=== PATIENT | male | born 1990 | race Two or more races ===

== ENCOUNTER 2018-11-08 23:32 | Emergency (ER) | payer SELFPAY ==
[2018-11-09] MEDS ORDERED: ACETAMINOPHEN 325 MG TABLET PO ONE (00:37)
[2018-11-09] MEDS ORDERED: ONDANSETRON HCL INJ/PF 4 MG/2 ML SDV IV ONE (00:53)
[2018-11-09] MEDS ORDERED: HYDROMORPHONE HCL INJ/PF 2 MG/ML AMPULE IV ONE (00:54)
[2018-11-09 01:04] LABS: VENOUS BLOOD BASE EXCESS 1.8 mmol/L; VENOUS BLOOD HCO3 26.1 mmol/L (20-32); VENOUS BLOOD PCO2 40.1 mmHg (35-63); VENOUS BLOOD PH 7.43 (7.30-7.42)
[2018-11-09 01:06] LABS: HEMATOCRIT 43.8 % (37.9-51.0); HEMOGLOBIN 14.9 g/dL (13.5-17.0); MEAN CORPUSCULAR HEMOGLOBIN 28.5 pg (27.0-33.4); MEAN CORPUSCULAR VOLUME 84 fl (80-97); PLATELET COUNT 327 10^3/uL (150-450); RED BLOOD COUNT 5.21 10^6/uL (4.35-5.55); RED CELL DISTRIBUTION WIDTH 13.6 % (11.5-14.0); WHITE BLOOD COUNT 12.2 10^3/uL (4.0-10.5)
[2018-11-09 01:13] LABS: INTERNATIONAL RATION (INR) 0.92; PROTHROMBIN TIME 12.8 SEC (11.4-15.4)
[2018-11-09 01:20] LABS: ALANINE AMINOTRANSFERASE 42 U/L (21-72); ALBUMIN 5.1 g/dL (3.5-5.0); ALKALINE PHOSPHATASE 118 U/L (38-126); ANION GAP 15 (5-19); ASPARTATE AMINO TRANSFERASE 25 U/L (17-59); BILIRUBIN,DIRECT 0.2 mg/dL (0.0-0.4); BILIRUBIN,TOTAL 0.9 mg/dL (0.2-1.3); BLOOD UREA NITROGEN 19 mg/dL (7-20); CALCIUM 9.7 mg/dL (8.4-10.2); CARBON DIOXIDE 26 mmol/L (22-30); CHLORIDE 101 mmol/L (98-107); GLUCOSE 126 mg/dL (75-110); LIPASE 34.3 U/L (23-300); POTASSIUM 4.1 mmol/L (3.6-5.0); SODIUM 142.1 mmol/L (137-145); TOTAL PROTEIN 8.6 g/dL (6.3-8.2)
[2018-11-09 01:30] LABS: ABSOLUTE LYMPHOCYTES# (MANUAL) 0.5 10^3/uL (0.5-4.7); ABSOLUTE MONOCYTES # (MANUAL) 0.9 10^3/uL (0.1-1.4); ABSOLUTE NEUTROPHILS# (MANUAL) 10.9 10^3/uL (1.7-8.2); BAND NEUTROPHILS % (MANUAL) 2 % (3-5); BASOPHILS % (MANUAL) 0 % (0-2); EOSINOPHILS % (MANUAL) 0 % (0-6); LYMPHOCYTES % (MANUAL) 4 % (13-45); MONOCYTES % (MANUAL) 7 % (3-13); SEGMENTED NEUTROPHILS % (MAN) 87 % (42-78); TOTAL CELLS COUNTED 100; TOXIC GRANULATION SLIGHT
[2018-11-09 01:31] LABS: PLATELET COMMENT ADEQUATE; PLATELET LARGE PRESENT; POLYCHROMASIA SLIGHT
--- NOTE | 2018-11-09 01:59 | RADIOLOGY REPORT (SQ) ---
EXAM DESCRIPTION: US ABDOMEN LIMITED COMPLETED DATE/TME: 11/09/2018 00:54 CLINICAL HISTORY: 27 years, Male, RUQ and epigastric pain and vomiting COMPARISON: None. TECHNIQUE: Grayscale and Doppler images of the abdomen LIMITATIONS: None. FINDINGS: The visualized portions of the pancreas, aorta, and IVC appear unremarkable. The liver has homogeneous echotexture and measures 17.7 cm in size. The main portal vein demonstrates normal hepatopedal flow. A small amount of sludge is noted within the gallbladder. No shadowing stone, wall thickening, or pericholecystic fluid is identified. No sonographic Deras sign was elicited. The common bile duct measures up to 0.2 cm in size. Right kidney measures 11.7 x 5.4 x 6.0 cm. There is no hydronephrosis. IMPRESSION: Small amount of sludge within the gallbladder. No evidence of cholelithiasis or acute cholecystitis. copyright 2010 [employer]- All Rights Reserved
[2018-11-09 04:22] VITALS: BP 139/71
--- NOTE | 2018-11-09 04:26 | ER Document Report ---
Entered by YESSICA COTO SCRIBE 11/09/18 0152 Acting as scribe for:CHAR RAMÍREZ DO ED General - General Chief Complaint: Upper Abdominal Pain Stated Complaint: ABDOMINAL PAIN Time Seen by Provider: 11/09/18 00:39 Primary Care Provider: LUCÍA SOFIA MD [ACTIVE STAFF] - Follow up as needed Mode of Arrival: Ambulatory Information source: Patient Notes: Patient is a 27 year old male presenting to the emergency department accompanied by friends complaining of epigastric abdominal pain and vomiting onset today. Friend at bedside states the patient ate lunch around 1400 today and immediately had abdominal pain and vomited further describing the vomit as containing streaks of blood. Patient states throughout the day the pain has significantly worsened. He reports having similar symptoms in the past and presenting to the emergency department where he received a medication that temporarily relieved his pain. He also complains of constipation. TRAVEL OUTSIDE OF THE [place] IN LAST 30 DAYS: No - Related Data Allergies/Adverse Reactions: Penicillins Allergy (Verified 11/08/18 23:36) Past Medical History - General Information source: Patient - Social History Smoking Status: Current Some Day Smoker Cigarette use (# per day): Yes Chew tobacco use (# tins/day): No Smoking Education Provided: No Family History: Reviewed & Not Pertinent Review of Systems - Review of Systems Constitutional: No symptoms reported EENT: No symptoms reported Cardiovascular: No symptoms reported Respiratory: No symptoms reported Gastrointestinal: See HPI, Abdominal pain, Vomiting, Constipation, Blood in vomit Genitourinary: No symptoms reported Male Genitourinary: No symptoms reported Musculoskeletal: No symptoms reported Skin: No symptoms reported Hematologic/Lymphatic: No symptoms reported Neurological/Psychological: No symptoms reported -: Yes All other systems reviewed and negative Physical Exam - Vital signs Vitals: Temp Pulse Resp BP Pulse Ox 99.6 F 115 H 18 131/79 H 94 11/08/18 23:40 11/08/18 23:40 11/08/18 23:40 11/08/18 23:40 11/08/18 23:40 - Notes Notes: GENERAL: Alert, appears uncomfortable, interacts well. No acute distress. HEAD: Normocephalic, atraumatic. EYES: Pupils equal, round, and reactive to light. Extraocular movements intact. ENT: Oral mucosa moist, tongue midline. NECK: Full range of motion. Supple. Trachea midline. LUNGS: Clear to auscultation bilaterally, no wheezes, rales, or rhonchi. No respiratory distress. HEART: Regular rate and rhythm. No murmurs, gallops, or rubs. ABDOMEN: Soft, epigastric abdominal tenderness to palpation. Non-distended. Bowel sounds present in all 4 quadrants. EXTREMITIES: Moves all 4 extremities spontaneously. NEUROLOGICAL: Alert and oriented x3. Normal speech. PSYCH: Normal affect, normal mood. SKIN: Warm, dry, normal turgor. No rashes or lesions noted. Course - Re-evaluation Re-evalutation: 11/09/18 02:28 CBC shows mild leukocytosis of 12.2, coags normal, venous pH is slightly low at seven-point venous blood gas grossly unremarkable, CMP unremarkable, lactic acid normal, LFTs normal, lipase normal at 34.3, abdominal ultrasound shows some sludgy bile. Patient's pain and nausea is completely relieved after half milligram Dilaudid and 4 mg of Zofran as well as IV fluids. Discussed with patient that there is no evidence of pancreatitis, he may be having biliary colic versus a viral syndrome that is causing him to vomit. Small streaks of blood mixed with sputum is not concerning to me at this time. Patient is recommended to follow a low-fa t diet, take Carafate and ranitidine for the next week and return to the emergency department for worsening pain, increasing blood or fevers. Follow-up with surgery as an outpatient for possible biliary colic. - Vital Signs Vital signs: Temp Pulse Resp BP Pulse Ox 99.6 F 108 H 18 139/71 H 97 11/08/18 23:40 11/09/18 04:20 11/09/18 04:20 11/09/18 04:20 11/09/18 04:20 - Laboratory Result Diagrams: 11/09/18 00:49 11/09/18 00:49 Laboratory results interpreted by me: 11/09/18 11/09/18 11/09/18 00:49 00:49 00:49 WBC 12.2 H Seg Neuts % (Manual) 87 H Band Neutrophils % 2 L Lymphocytes % (Manual) 4 L Abs Neuts (Manual) 10.9 H VBG pH 7.43 H Glucose 126 H Total Protein 8.6 H Albumin 5.1 H Discharge - Discharge Clinical Impression: Epigastric abdominal pain Vomiting Qualifiers: Vomiting type: unspecified Vomiting Intractability: non-intractable Nausea presence: with nausea Qualified Code(s): R11.2 - Nausea with vomiting, unspecified Hematemesis Qualifiers: Nausea presence: with nausea Qualified Code(s): K92.0 - Hematemesis Condition: Stable Disposition: HOME, SELF-CARE Additional Instructions: Abdominal Pain There are many causes of abdominal pain. Pain can mean a serious problem requiring surgery (such as appendicitis). It can also be an innocent problem that goes away on its own (such as a viral infection). Often, time must pass to determine the cause of pain. The physician does not feel that hospitalization is necessary, at present. Things may change within the next 24 hours. Call the doctor or come back for re- examination if any problems occur, such as: (1) Pain that becomes more severe, steady, or becomes concentrated in one specific area. Also, pain that is more severe with movement or coughing. (2) Vomiting that persists or becomes more frequent. (3) Blood in the vomitus, urine, or bowel movements. Blood in the stool may have a tarry or black appearance. (4) Shaking chills or fever greater than 100 degrees F. (5) The abdomen becomes more distended or swollen. (6) Bowel movements cease. (7) Failure to improve as expected. Gallbladder Disease Your evaluation shows evidence of gallbladder disease. The gallbladder is a pouch under the liver which stores bile. Stones, infection, or irritation of the gallbladder cause attacks of pain. Certain foods -- fats in particular -- may provoke attacks. The usual treatment for gallbladder disease is surgical removal of the gallbladder -- called a cholecystectomy. You will be referred to a physician qualified to advise you on the best treatment for your problem. Hospitalization is not necessary. Take clear liquids only until you are painfree. After that, you should stay on a low-fat diet, with frequent SMALL meals. Call the doctor or return at once if you develop severe pain, repeated vomiting, fever, or jaundice (a yellow color in the skin and whites of the eyes). I suspect your pain is coming from biliary colic, this is the gallbladder disease described above. Your ultrasound showed that you have "sludgy bile", this is thick bile that is more difficult to squeeze out of your gallbladder and it can cause pain. Please follow a low-fat diet for the next 2 weeks, if this completely resolved your symptoms you may slowly try to reintroduce fatty foods. If this worsens your pain then you likely have a problem with your gallbladder and will want to consult with surgery about possibly having your gallbladder removed. Please also take the ranitidine and Carafate as directed for the next week. Return to the emergency department should the amount of blood in your vomit increase, your pain worsen or you develop fevers. Prescriptions: Ondansetron [Zofran Odt 4 mg Tablet] 1 - 2 tab PO Q4HP PRN #10 tab.rapdis PRN Reason: Ranitidine HCl 75 mg PO BID #30 tablet Sucralfate [Carafate Susp 1 Gm/10 Ml Udcup] 1 gm PO ACHSP PRN #20 udc PRN Reason: Referrals: LUCÍA SOFIA MD [ACTIVE STAFF] - Follow up as needed Scribe Attestation: 11/09/18 04:25 I personally performed the services described in the documentation, reviewed and edited the documentation which was dictated to the scribe in my presence, and it accurately records my words and actions. I personally performed the services described in the documentation, reviewed and edited the documentation which was dictated to the scribe in my presence, and it accurately records my words and actions.
--- NOTE | 2018-11-09 10:44 | EKG REPORT ---
SEVERITY:- ABNORMAL ECG - SINUS RHYTHM INCOMPLETE RIGHT BUNDLE BRANCH BLOCK : Confirmed by: Yuly Elliott MD 09-Nov-2018 10:44:13
== END 2018-11-09 04:20 | disposition home or self-care (01) ==
LOC: ER 23:32
DX: R10.13 Epigastric pain (principal); R11.2 Nausea with vomiting, unspecified; K92.0 Hematemesis; R10.10 Upper abdominal pain, unspecified; F17.210 Nicotine dependence, cigarettes, uncomplicated
CPT/HCPCS: 93005; 99284; 96374; 96375; 36415; 87040; 83690; 85025; 85610; 80053; 82803; 83605; 76705; 93010; J1170; J2405